=== PATIENT | male | born 1995 | race Hispanic/Latino ===

== ENCOUNTER 2018-11-19 14:31 | Emergency (ER) | payer SELFPAY ==
--- NOTE | 2018-11-19 14:46 | Emergency Department Report ---
Blank Doc - Documentation Documentation: This is a 22-year-old male that presents with sore throat and left earache. This initial assessment/diagnostic orders/clinical plan/treatment(s) is/are subject to change based on patient's health status, clinical progression and re- assessment by fellow clinical providers in the ED. Further treatment and workup at subsequent clinical providers discretion. Patient/guardians urged not to elope from the ED as their condition may be serious if not clinically assessed and managed. Initial orders include: 1- Patient sent to [facility] for further evaluation and treatment 2- strep swab
[2018-11-19 14:47] VITALS: BP 133/75
--- NOTE | 2018-11-19 18:33 | Emergency Department Report ---
ED ENT HPI - General Chief complaint: Sore Throat Stated complaint: SORE THROAT Time Seen by Provider: 11/19/18 14:43 Source: patient Mode of arrival: Ambulatory Limitations: No Limitations - History of Present Illness Initial comments: Pt is a 22 yo male who presents to the ED with c/o left sided ear pain that began a week ago. He states he has seen some white/yellow drainage. He has associated sore throat, congestion, and rhinorrhea. The patient denies any fever. He had his tonsil and adenoids removed. he had otitis media frequently as a child and had tympanostomy tubes. - Related Data Previous Rx's Medication Instructions Recorded Last Taken Type Amoxicillin [Amoxicillin TAB] 875 mg PO BID 7 Days #14 tablet 11/19/18 Unknown Rx Ofloxacin 0.3% [Floxin Otic] 10 ml OT DAILY 7 Days #1 bottle 11/19/18 Unknown Rx guaiFENesin [Mucinex] 600 mg PO BID #14 tab.er.12h 11/19/18 Unknown Rx Allergies Allergy/AdvReac Type Severity Reaction Status Date / Time No Known Allergies Allergy Verified 11/19/18 14:45 ED Dental HPI - General Chief complaint: Sore Throat Stated complaint: SORE THROAT Time Seen by Provider: 11/19/18 14:43 Source: patient Mode of arrival: Ambulatory Limitations: No Limitations - Related Data Previous Rx's Medication Instructions Recorded Last Taken Type Amoxicillin [Amoxicillin TAB] 875 mg PO BID 7 Days #14 tablet 11/19/18 Unknown Rx Ofloxacin 0.3% [Floxin Otic] 10 ml OT DAILY 7 Days #1 bottle 11/19/18 Unknown Rx guaiFENesin [Mucinex] 600 mg PO BID #14 tab.er.12h 11/19/18 Unknown Rx Allergies Allergy/AdvReac Type Severity Reaction Status Date / Time No Known Allergies Allergy Verified 11/19/18 14:45 ED Review of Systems ROS: Stated complaint: SORE THROAT Other details as noted in HPI Comment: All other systems reviewed and negative ED Past Medical Hx - Past Medical History Previous Medical History?: No - Surgical History Past Surgical History?: No - Social History Smoking Status: Current Some Day Smoker - Medications Home Medications: Home Medications Medication Instructions Recorded Confirmed Last Taken Type Amoxicillin [Amoxicillin TAB] 875 mg PO BID 7 Days #14 tablet 11/19/18 Unknown Rx Ofloxacin 0.3% [Floxin Otic] 10 ml OT DAILY 7 Days #1 bottle 11/19/18 Unknown Rx guaiFENesin [Mucinex] 600 mg PO BID #14 tab.er.12h 11/19/18 Unknown Rx ED Physical Exam - General Limitations: No Limitations General appearance: alert, in no apparent distress - Head Head exam: Present: atraumatic, normocephalic - Eye Eye exam: Present: normal appearance, EOMI - ENT ENT exam: Present: normal orophraynx, other (right ear canal with erythema, right TM is normal, left ear canal with erythema and small amount of purulence on the canal, left TM is bulging with purulence present behind the TM, no perforation of the bilateral TMs, nasal turbinates are edemaotus and erythematous with crusted mucus discharge, no sinus TTP, no posterior oropharynx erythema or exudates) - Respiratory Respiratory exam: Present: normal lung sounds bilaterally. Absent: respiratory distress, wheezes, rales, rhonchi, stridor, chest wall tenderness, accessory muscle use, decreased breath sounds, prolonged expiratory - Cardiovascular Cardiovascular Exam: Present: regular rate, normal rhythm, normal heart sounds. Absent: systolic murmur, rubs, gallop - Neurological Exam Neurological exam: Present: alert, oriented X3 - Psychiatric Psychiatric exam: Present: normal affect, normal mood - Skin Skin exam: Present: warm, dry, intact ED Course Vital Signs 11/19/18 14:45 Temperature 98.2 F Pulse Rate 91 H Respiratory 16 Rate Blood Pressure 133/75 O2 Sat by Pulse 98 Oximetry ED Medical Decision Making - Medical Decision Making Pt is a 22 yo male who presents to the ED with c/o left sided ear pain that began a week ago. He states he has seen some white/yellow drainage. He has associated sore throat, congestion, and rhinorrhea. The patient denies any fever. He had his tonsil and adenoids removed. he had otitis media frequently as a child and had tympanostomy tubes. Examination shows bilateral otitis externa and left sided otitis media without peforation. Will give pt antibiotic ear drops and PO antibiotics. Advised pt to follow up with PCP in the next 3 days f or ear recheck. Advised to take all medication as prescribed. Return to the ED for any new or worsening symptoms. - Differential Diagnosis Otitis media, Otitis externa, URI Critical care attestation.: If time is entered above; I have spent that time in minutes in the direct care of this critically ill patient, excluding procedure time. ED Disposition Clinical Impression: Otitis externa Qualifiers: Otitis externa type: unspecified type Chronicity: acute Laterality: bilateral Qualified Code(s): H60.503 - Unspecified acute noninfective otitis externa, bilateral Otitis media Qualifiers: Otitis media type: suppurative Chronicity: acute Laterality: left Recurrence: non-recurrent Spontaneous tympanic membrane rupture: without spontaneous rupture Qualified Code(s): H66.002 - Acute suppurative otitis media without spontaneous rupture of ear drum, left ear Disposition: - TO HOME OR SELFCARE Is pt being admited?: No Does the pt Need Aspirin: No Condition: Stable Instructions: Otitis Externa (ED), Otitis Media (ED) Additional Instructions: Follow up with your primary care doctor for a ear recheck in three days. Take ibuprofen/tylenol for pain. Use all medication as directed. Drink plenty of fluids. Return to the emergency room for any new or worsening symptoms. Prescriptions: Amoxicillin [Amoxicillin TAB] 875 mg PO BID 7 Days #14 tablet Ofloxacin 0.3% [Floxin Otic] 10 ml OT DAILY 7 Days #1 bottle guaiFENesin [Mucinex] 600 mg PO BID #14 tab.er.12h Referrals: [facility] [Primary Care Provider] - 2-3 Days Time of Disposition: 18:37 Print Language: MALTESE
== END 2018-11-19 18:45 | disposition home or self-care (01) ==
LOC: ED 14:31
DX: H60.503 Unspecified acute noninfective otitis externa, bilateral (principal); H66.002 Acute suppurative otitis media without spontaneous rupture of ear drum, left ear
CPT/HCPCS: 87116; 87430; 99283

== ENCOUNTER 2020-05-26 13:17 | Emergency (ER) | payer SELFPAY ==
[2020-05-26] MEDS ORDERED: NEOMY 3.5 MG/BACIT 400 UNITS/POLY B 5000 UNITS/GM OINT PACKET TP SCH (15:00)
[2020-05-26] MEDS ORDERED: DIPHtheria,PERTUSSIS(ACELL),TETANUS VACCINE/PF 0.5 ML VIAL IM ONE (15:18)
[2020-05-26] MEDS ORDERED: HYDROcodone/ACETAMINOPHEN 5-325 MG TAB PO ONE (15:18)
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
[2020-05-26 17:47] VITALS: BP 130/70
[2020-05-26] MEDS ORDERED: NEOMY 3.5 MG/BACIT 400 UNITS/POLY B 5000 UNITS OINT 15 GM TP SCH (20:00)
== END 2020-05-26 17:40 | disposition home or self-care (01) ==
LOC: ED 13:17
DX: S39.012A Strain of muscle, fascia and tendon of lower back, initial encounter (principal); S60.519A Abrasion of unspecified hand, initial encounter; S09.90XA Unspecified injury of head, initial encounter; F12.10 Cannabis abuse, uncomplicated; Z98.890 Other specified postprocedural states; V49.49XA Driver injured in collision with other motor vehicles in traffic accident, initial encounter; Y93.89 Activity, other specified; Y92.488 Other paved roadways as the place of occurrence of the external cause; Y99.8 Other external cause status
CPT/HCPCS: 70450; 72131; 73130; 90471; 90715; 99284; A6250